=== PATIENT | female | born 1970 | race Caucasian/White ===

== ENCOUNTER 2018-07-10 16:29 | Emergency (ER) | payer BC ==
[2018-07-10 16:53] VITALS: BP 127/77
--- NOTE | 2018-07-10 16:59 | UC ---
FLU HPI - HPI Summary HPI Summary: Patient presents to urgent care requesting testing for the flu. 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 Patient states that since Monday afternoon she's had sinus congestion sore throats nonproductive cough. Patient reports decreased energy. No documented fevers although felt warm. No chills no rash. Patient denies shortness of breath. Patient took some TheraFlu yesterday but nothing today. Patient is not to work today. Patient did not get the flu vaccine. Patient is not immunocompromised and she says she is not . Patient's medications reviewed this visit. - History of Current Complaint Chief Complaint: UCGeneralIllness Stated Complaint: CONGESTION,COUGH Time Seen by Provider: 07/10/18 16:56 Hx Obtained From: Patient Hx Last Menstrual Period: 07/01/18 Onset/Duration: Gradual Onset Severity Currently: Mild Severity Initially: Mild Pain Intensity: 0 Pain Scale Used: 0-10 Numeric Associated Signs & Symptoms: Positive: Myalgia, Cough, Nasal Congestion, Headache - Allergy/Home Medications Allergies/Adverse Reactions: Allergies Allergy/AdvReac Type Severity Reaction Status Date / Time No Known Allergies Allergy Verified 07/10/18 16:53 PMH/Surg Hx/FS Hx/Imm Hx Previously Healthy: Yes - Surgical History Surgical History: Yes Surgery Procedure, Year, and Place: C-SECT 17 YRS AGO - Family History Known Family History: Positive: Non-Contributory - Social History Occupation: Employed Full-time Lives: With Family Alcohol Use: None Substance Use Type: None Smoking Status (MU): Never Smoked Tobacco Review of Systems All Other Systems Reviewed And Are Negative: Yes Constitutional: Positive: Fatigue ENT: Positive: Nasal Discharge, Sinus Congestion, Sinus Pain/Tenderness Respiratory: Positive: Cough Is Patient Immunocompromised?: No Physical Exam - Summary Physical Exam Summary: Vital Signs Reviewed: Yes A+Ox3, no distress Eyes: Conjunctiva Clear, FRANK. EOM intact and full ENT: Hearing grossly normal TM x 2 clear, sinus congested and boggy, + PND, mmoist, uvula midline, no exudate, no erythema Neck: Positive: Supple Respiratory: Positive: No respiratory distress, No accessory muscle use + CTA throughout no w/r Cardiovascular: RRR nl s1, s2 no m/r CBT <2 sec abd soft + BS nt/nd no guarding, no distension Musculoskeletal Exam: WALLER x 4 without difficulty Strength Intact, ROM Intact Neurological: Positive: Alert, + sensation throughout Psychological: Positive: Normal Response To Family Skin: Positive: no rash, no ecchymosis Triage Information Reviewed: Yes Vital Signs: Initial Vital Signs Temp 97.8 F 07/10/18 16:50 Pulse 102 07/10/18 16:50 Resp 16 07/10/18 16:50 BP 127/77 07/10/18 16:50 Pulse Ox 100 07/10/18 16:50 Flu Course/Dx - Course Course Of Treatment: Patient presents with 48 hours of head congestion fatigue feeling warm decreased appetite. Patient with multiple. Exposures. Patient without any documented fevers or myalgias. On exam patient vital signs are stable. Patient with sinus congestion postnasal drip. Patient took TheraFlu last day but nothing today. Patient will: A+. 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 Discussed with patient Tamiflu. Patient with like to take it. Encourage fluids, Motrin Tylenol, Flonase, decongestant, patient comfortable in agreement with plan. - Differential Dx/Diagnosis Provider Diagnosis: Influenza A Discharge - Sign-Out/Discharge Documenting (check all that apply): Patient Departure All imaging exams completed and their final reports reviewed: No Studies - Discharge Plan Condition: Stable Disposition: HOME Prescriptions: Fluticasone NASAL SPRAY 50MCG* [Flonase NASAL SPRAY 50MCG*] 2 spray BOTH NARES DAILY #1 btl Oseltamivir CAP* [Tamiflu CAP*] 75 mg PO BID #10 cap Patient Education Materials: Influenza (DC) Forms: *Gen. Provider Communication, *Work Release Referrals: Blank Varner MD [Primary Care Provider] - Additional Instructions: - Stay well hydrated. Drink plenty of non-alcoholic, non-caffinated beverages. - Alternate ibuprofen (Advil, Motrin) 600mg and Tylenol every 3 hours for pain or fever. Take with food. Do NOT take for more than 4-5 days. - These infections are spread by secretions - do NOT share eating or drinking utensils - clean items you share with other people such as cell phones, computer mouse, TV remote, computer tablets,etc. Once you start to feel better, change your toothbrush and your pillowcase. - get plenty of restful sleep - humidify the air in the room where you sleep - boil water, run a hot steam shower, vaporizer, cups of water by heat register - okay to take over the counter decongestant and cough medication - contact your doctor or return with questions or concerns - Billing Disposition and Condition Condition: STABLE Disposition: Home
[2018-07-10 17:03] LABS: Influenza A Molecular POSITIVE (Negative)
== END 2018-07-10 17:25 | disposition home or self-care (01) ==
LOC: UCCORT 16:29
DX: J10.1 Influenza due to other identified influenza virus with other respiratory manifestations (principal)
CPT/HCPCS: 99202; G0463